=== PATIENT | female | born 1940 | race African-American/Black ===

== ENCOUNTER → 2016-10-13 | Outpatient (CLI) | payer MEDICARE ==
--- NOTE | 2016-10-13 14:07 | RAD ---
DATE: 10/13/2016 EXAM: DIGITAL SCREEN BILAT W/CAD HISTORY: Routine screening COMPARISON: 09/27/2010 This study was interpreted with the benefit of Computerized Aided Detection (CAD). FINDINGS: There are scattered fibroglandular densities in the breasts. No new or enlarging breast densities are seen. Several scattered benign type calcifications are noted. No suspicious microcalcifications are evident. IMPRESSION: Stable mammograms without evidence of malignancy. BI-RADS CATEGORY: 2 BENIGN FINDING(S) RECOMMENDED FOLLOW-UP: 12M 12 MONTH FOLLOW-UP PQRS compliance statement: Patient information was entered into a reminder system with a target due date for the next mammogram. Mammography is a sensitive method for finding small breast cancers, but it does not detect them all and is not a substitute for careful clinical examination. A negative mammogram does not negate a clinically suspicious finding and should not result in delay in biopsying a clinically suspicious abnormality. "Our facility is accredited by the [employer] Mammography [employer]."
== END | disposition home or self-care (01) ==
LOC: MAMMO 13:02
PROVIDERS: ATTEND Family Medicine
DX: Z12.31 Encounter for screening mammogram for malignant neoplasm of breast (principal)
CPT/HCPCS: G0202; 77067

== ENCOUNTER → 2017-08-07 | Outpatient (CLI) | payer MEDICARE ==
--- NOTE | 2017-08-07 18:17 | RAD ---
CT of the chest without contrast: Clinical History: Bronchospasm and pneumonia. Axial helical images of the chest were obtained without contrast. FINDINGS: There is a 3.6 x 4.2 x 1.9 cm patchy mass in the left lower lobe near the lung base with slight cavitation inferiorly. There is a mass abutting the pleura medially in the right lower lobe that measures 1.5 x 1.2 cm. There are additional tiny nodules throughout the lungs bilaterally. There are multiple small mediastinal lymph nodes. Thickening of the adrenals is likely incidental. Impression: 1. 2 suspicious pulmonary masses, one on the left and one on the right. These could be primary or metastatic cancer. 2. Mild mediastinal lymphadenopathy likely reactive. PQRS Compliance Statement: One or more of the following individualized dose reduction techniques were utilized for this examination: 1. Automated exposure control 2. Adjustment of the mA and/or kV according to patient size 3. Use of iterative reconstruction technique Electronically signed by: Jong Beth III, MD (08/07/2017 6:14 PM) [id number]
== END | disposition home or self-care (01) ==
LOC: CT 17:31
PROVIDERS: ATTEND Family Medicine
DX: J98.01 Acute bronchospasm (principal); J18.9 Pneumonia, unspecified organism; R91.8 Other nonspecific abnormal finding of lung field; R59.0 Localized enlarged lymph nodes
CPT/HCPCS: 71250